=== PATIENT | female | born 1970 | race Hispanic/Latino ===

== ENCOUNTER 2021-12-03 14:24 | Outpatient (CLI) | payer BC | END 2021-12-03 14:25 | disposition home or self-care (01) | LOC: BICMAMMO 14:24 | PROVIDERS: ATTEND Family Medicine | DX: Z12.31 Encounter for screening mammogram for malignant neoplasm of breast (principal) | CPT/HCPCS: 77063; 77067 ==

== ENCOUNTER 2022-04-24 15:17 | Outpatient (CLI) | payer BC | END 2022-04-24 15:18 | disposition home or self-care (01) | LOC: BICULT 15:17 | PROVIDERS: ATTEND Student in an Organized Health Care Education/Training Program | DX: N39.0 Urinary tract infection, site not specified (principal) | CPT/HCPCS: 76770 ==